=== PATIENT | male | born 1960 | race African-American/Black ===

== ENCOUNTER 2017-02-24 15:16 | Emergency (ER) | payer OTHER ==
[~2017-02-24] VITALS: Ht 188 cm; Wt 104.8 kg
[2017-02-24] MEDS ORDERED: IBUPROFEN 800800 M1 PO (15:28)
[2017-02-24] MEDS ORDERED: NOVOLOG100 UNIT/1 SUBQ (15:29)
[2017-02-24] MEDS ORDERED: LANTUS100 UNIT/M SUBQ (15:29)
[2017-02-24] MEDS ORDERED: NORFLEX100 MG PO (15:59)
[2017-02-24] MEDS ORDERED: NAPROSYN500 MG PO (15:59)
[2017-02-24 16:27] VITALS: BP 157/91
== END 2017-02-24 16:28 | disposition home or self-care (01) ==
LOC: ER 15:16
DX: S29.012A Strain of muscle and tendon of back wall of thorax, initial encounter (principal); X58.XXXA Exposure to other specified factors, initial encounter; Y93.89 Activity, other specified; Y92.89 Other specified places as the place of occurrence of the external cause; Y99.0 Civilian activity done for income or pay

== ENCOUNTER 2019-07-13 04:39 | Emergency (ER) | payer OTHER ==
[~2019-07-13] VITALS: Ht 188 cm; Wt 115.7 kg
[~2019-07-13 04:39] MED LIST: IBUPROFEN 800800 M1 PO; LANTUS100 UNIT/M SUBQ; NAPROSYN500 MG PO; NORFLEX100 MG PO; NOVOLOG100 UNIT/1 SUBQ
[2019-07-13] MEDS ORDERED: GUAIFEN-CODEINE10 ML PO (06:13)
[2019-07-13 08:09] VITALS: BP 148/77
== END 2019-07-13 08:10 | disposition home or self-care (01) ==
LOC: ER 04:39
DX: J06.9 Acute upper respiratory infection, unspecified (principal)